=== PATIENT | male | born 1980 | race Caucasian/White ===

== ENCOUNTER 2019-12-13 18:36 | Emergency (ER) | payer OTHER ==
[~2019-12-13] VITALS: Ht 182.9 cm; Wt 108.9 kg
[2019-12-13 19:03] LABS: BASOPHILS # (AUTO) 0.1 K/uL (0.0-8.0); BASOPHILS % (AUTO) 0.7 % (0.0-2.0); EOSINOPHILS # (AUTO) 0.2 K/uL (0.0-0.7); HEMATOCRIT 45.3 % (36.7-47.1); HEMOGLOBIN 15.5 g/dL (12.5-16.3); LYMPHOCYTES # (AUTO) 3.6 K/uL (20.0-40.0); LYMPHOCYTES % (AUTO) 32.5 % (20.5-51.5); MEAN CORPUSCULAR HEMOGLOBIN 29.1 uug (23.8-33.4); MEAN CORPUSCULAR HGB CONC 34 g/dL (32.5-36.3); MEAN CORPUSCULAR VOLUME 85.2 fL (73.0-96.2); MONOCYTES % (AUTO) 8.5 % (0.0-11.0); NEUTROPHILS # (AUTO) 6.3 K/uL (1.8-8.9); NEUTROPHILS % (AUTO) 56.3 % (38.5-71.5); PLATELET COUNT (AUTO) 279 K/uL (152-348); RED BLOOD CELL COUNT(AUTO) 5.32 MIL/uL (4.06-5.63); WHITE BLOOD COUNT (AUTO) 11.2 K/uL (3.6-10.2)
[2019-12-13 19:11] LABS: CREATININE 1.3 mg/dL (0.6-1.3); POTASSIUM 3.7 mmol/L (3.5-5.1)
--- NOTE | 2019-12-13 22:43 | NUR ---
Patient discharged to home in stable condition. Written and verbal after care instructions given. Patient verbalizes understanding of instructions. Stressed follow up or return to ER for worsening s/s. Patient left with stable gait.
[2019-12-13 22:44] VITALS: BP 127/43
== END 2019-12-13 22:44 | disposition home or self-care (01) ==
LOC: ER 18:37
DX: R07.9 Chest pain, unspecified (principal); R06.02 Shortness of breath; R42 Dizziness and giddiness
CPT/HCPCS: 36415; 70030-TC; 71045; 85025; 93005; A4663

== ENCOUNTER 2022-10-24 15:54 | Emergency (ER) | payer OTHER ==
[~2022-10-24] VITALS: Ht 182.9 cm; Wt 111.1 kg
[2022-10-24] MEDS ORDERED: HYDROCODONE/APAP 10-325 MG TABLET PO ONE (17:45)
[2022-10-24] MEDS ORDERED: HYDROCODONE/APAP 10-325 MG TABLET ONE (19:02)
[2022-10-24] MEDS ORDERED: LIDOCAINE HCL 1% 20 ML VIAL ONE (19:28)
[2022-10-24] MEDS ORDERED: LIDOCAINE HCL 1% 20 ML VIAL IJ ONE (19:30)
[2022-10-24] MEDS ORDERED: SULFAMETH/TRIMETH 800/160 MG TABLET ONE (19:57)
[2022-10-24] MEDS ORDERED: SULFAMETH/TRIMETH 800/160 MG TABLET PO ONE (20:15)
[2022-10-24] MEDS ORDERED: NEOMY/BACITRA/POLYMYXIN B OINT UD PACKET TP ONE (20:22)
[2022-10-24] MEDS ORDERED: SULF1TAB48 PO (20:22)
[2022-10-24 20:34] VITALS: BP 129/75
--- NOTE | 2022-10-24 20:34 | NUR ---
Patient discharged to home in stable condition. Written and verbal after care instructions given. Patient verbalizes understanding of instructions. Stressed follow up or return to ER for worsening s/s.
== END 2022-10-24 20:34 | disposition home or self-care (01) ==
LOC: ER 15:54
DX: L60.0 Ingrowing nail (principal); L03.031 Cellulitis of right toe
CPT/HCPCS: 99284; 73630; 11730; J3490; J7040; A4663

== ENCOUNTER 2022-10-27 10:47 | Emergency (ER) | payer OTHER ==
[~2022-10-27] VITALS: Ht 182.9 cm; Wt 111.1 kg
[~2022-10-27 10:47] MED LIST: SULF1TAB48 PO
== END 2022-10-27 11:30 | disposition home or self-care (01) ==
LOC: ER 10:50
DX: Z48.817 Encounter for surgical aftercare following surgery on the skin and subcutaneous tissue (principal); L03.031 Cellulitis of right toe
CPT/HCPCS: A4663

== ENCOUNTER 2023-03-15 14:17 | Emergency (ER) | payer OTHER ==
[~2023-03-15] VITALS: Ht 182.9 cm; Wt 108.9 kg
[2023-03-15 14:28] VITALS: O2SAT 97
[2023-03-15] MEDS ORDERED: MOXI3DRO10 RIGHTEYE (15:19)
== END 2023-03-15 15:34 | disposition home or self-care (01) ==
LOC: ER 14:17
DX: H00.012 Hordeolum externum right lower eyelid (principal); Z79.2 Long term (current) use of antibiotics; Z79.899 Other long term (current) drug therapy
CPT/HCPCS: A4663

== ENCOUNTER 2025-03-20 21:59 | Emergency (ER) | payer OTHER ==
[~2025-03-20] VITALS: Ht 182.9 cm; Wt 99.8 kg
[~2025-03-20 21:59] MED LIST changes: +MOXI3DRO10 RIGHTEYE
[2025-03-20] MEDS ORDERED: abilify (22:31)
[2025-03-20] MEDS ORDERED: VENLAFAXINE (22:31)
[2025-03-20] MEDS ORDERED: ozempic (22:31)
[2025-03-20] MEDS ORDERED: ONDANSETRON 4 MG/2 ML VIAL ONE (22:39)
[2025-03-20 22:51] LABS: PLATELET COUNT (AUTO) 391 K/uL (152-348); RED BLOOD CELL COUNT(AUTO) 5.75 MIL/uL (4.06-5.63); RED CELL DISTRIBUTION WIDTH 14.1 % (12.1-16.2); WHITE BLOOD COUNT (AUTO) 10.2 K/uL (3.6-10.2)
[2025-03-20] MEDS: IV LACTATED RINGERS SOLUTION 1,000 ML IV ONE ×2 (22:52→23:30)
[2025-03-20] MEDS: ONDANSETRON 4 MG/2 ML VIAL IV ONE (22:52)
[2025-03-20 22:56] LABS: CREATININE 1.3 mg/dL (0.6-1.3); SODIUM SERUM 141.0 mmol/L (136-145); UREA NITROGEN, BLOOD 16.0 mg/dL (7-18)
[2025-03-20 23:02] LABS: ASPARTATE AMINOTRANSFERASE 15.0 U/L (15-37); TOTAL PROTEIN, SERUM 7.5 g/dL (6.4-8.2)
[2025-03-20] MEDS ORDERED: ONDA4TAB11 PO (23:19)
[2025-03-20 23:30] VITALS: BP 125/78
[2025-03-21 00:30] VITALS: BP 121/63; O2SAT 99
== END 2025-03-21 00:39 | disposition home or self-care (01) ==
LOC: ER 22:08
DX: R11.2 Nausea with vomiting, unspecified (principal); R19.7 Diarrhea, unspecified; E86.0 Dehydration; F32.A Depression, unspecified; Z60.2 Problems related to living alone; Z20.822 Contact with and (suspected) exposure to COVID-19
CPT/HCPCS: 99284; 96374; 96361 ×2; 87426; 80076; 80048; 83690; 85025; 36415; 93005; J2405; J7120 ×2; A4606; A4663